=== PATIENT | female | born 1965 | race Two or more races ===

== ENCOUNTER 2019-08-05 13:42 | Outpatient (CLI) | payer MEDICAID ==
[2019-08-05 14:00] VITALS: BP 132/85
--- NOTE | 2019-08-05 18:14 | Consultation ---
DATE OF CONSULTATION: 08/05/2019 CONSULTING PHYSICIAN: Henrique Govea M.D. CHIEF COMPLAINT: Abdominal pain, diverticulitis. HISTORY OF PRESENT ILLNESS: This is a 54-year-old patient. According to her, this is the third episode of diverticulitis, currently on antibiotics. Apparently, she was given 10 days course of antibiotics, she was told that she needs to get another 10 days. Apparently, she has recurrent diverticulitis, was referred to us for possible colonoscopy. PAST MEDICAL HISTORY: 1. Hypertension. 2. Depression. 3. Diverticulitis. PAST SURGICAL HISTORY: None. MEDICATIONS: Flagyl, [place], Zoloft, estradiol, and another one. SOCIAL HISTORY: The patient denies any alcohol, but smokes cigarettes. Denies any drug abuse. ALLERGIES: No known allergies. REVIEW OF SYSTEMS: Positive for abdominal pain. PHYSICAL EXAMINATION: VITAL SIGNS: Temperature 98.6, blood pressure 132/85, pulse is 99, respirations 20. HEENT: Normocephalic and atraumatic. Sclerae anicteric. NECK: Supple. No evidence of obvious lymphadenopathy. CARDIOVASCULAR: Regular rate and rhythm. Plus S1 and S2. LUNGS: Clear to auscultation bilaterally. ABDOMEN: Positive bowel sounds. Soft. Minimal tenderness to palpation in the left lower quadrant. No rebound. No guarding. No peritoneal sign. EXTREMITIES: No cyanosis, no clubbing, no edema. ASSESSMENT AND PLAN: This is a 54-year-old female with recurrent diverticulitis, needs colonoscopy evaluation to rule out malignancy and also to locate the location of this diverticulosis for possible future surgery. The patient was told at this time given she has acute diverticulitis, this is not the best time to do the colonoscopy. We are going to try to get authorization and schedule her in future and when the pain is free. The patient was instructed if she has persistent pain despite of taking antibiotics to go back to the emergency room for possible admission and IV antibiotics. Henrique Govea M.D. DR: GARRISON JOB#: [id number] CC:
[2019-08-06] MEDS ORDERED: CIPRO500 MG PO (09:55)
[2019-08-06] MEDS ORDERED: ESTRACE1 MG ORAL (09:55)
[2019-08-06] MEDS ORDERED: METRONIDAZOLE500 MG ORAL (09:55)
[2019-08-06] MEDS ORDERED: HYDRALAZINE HCL25 M1 ORAL (09:55)
[2019-08-06] MEDS ORDERED: SERTRALINE HCL50 MG ORAL (09:55)
[2019-08-06] MEDS ORDERED: NORCO 5-325 TA1 EAC1 ORAL (09:55)
== END 2019-08-05 15:55 | disposition home or self-care (01) ==
LOC: PAN 13:42
DX: R10.9 Unspecified abdominal pain (principal); K57.90 Diverticulosis of intestine, part unspecified, without perforation or abscess without bleeding; I10 Essential (primary) hypertension; Z79.899 Other long term (current) drug therapy; F32.9 Major depressive disorder, single episode, unspecified
CPT/HCPCS: G0463